=== PATIENT | male | born 1950 | race Caucasian/White ===

== ENCOUNTER 2016-12-28 09:06 | Day surgery (SDC) | payer BC ==
[2016-12-28] MEDS ORDERED: LR 1,000 ML IV ONE (09:52)
[2016-12-28] MEDS ORDERED: LIDOCAINE 1% 2 ML INJ ID PRN (09:52)
--- NOTE | 2016-12-28 11:12 | PDANEPAE ---
ANE Past Medical History - Cardiovascular History Hx Hypertension: Yes Hx Arrhythmias: Yes Hx Chest Pain: No Hx Coronary Artery / Peripheral Vascular Disease: Yes Hx CHF / Valvular Disease: No Hx Palpitations: No Cardiovascular History Comment: [place] 2007. STENTS X5 LAST 09/2015. ATRIAL ABLATION FOR A-FIB NO EPISODES SINCE 2009 - Pulmonary History Hx COPD: No Hx Asthma/Reactive Airway Disease: No Hx Recent Upper Respiratory Infection: No Hx Oxygen in Use at Home: No Hx Sleep Apnea: No Sleep Apnea Screening Result - Last Documented: Positive - Neurologic History Hx Cerebrovascular Accident: No Hx Seizures: No Hx Dementia: No - Endocrine History Hx Diabetes: No - Renal History Hx Renal Disorders: No - Liver History Hx Hepatic Disorders: No - Neurological & Psychiatric Hx Hx Neurological and Psychiatric Disorders: Yes Neurological / Psychiatric History Comment: DEPRESSION PRIOR RX - Cancer History Hx Cancer: No - Congenital Disorder History Hx Congenital Disorders: No - GI History Hx Gastrointestinal Disorders: Yes Gastrointestinal History Comment: REFLUX. RECENT EGD/COLONOSCOPY AT [facility] ([place], [place]) NOW FOR FURTHER FU - Other Health History Other Health History: INSOMNIA. RT SHLDR TORN LIGAMENTS. DENTAL IMPLANTS - Surgical History Prior Surgeries: 09/2015 STENTS X3. EGD/COLONOSCOPY ANE Review of Systems Review of Systems: - Exercise capacity METS (RN): 6 METS ANE Patient History - Allergies Allergies/Adverse Reactions: No Known Allergies Allergy (Unverified 12/24/16 15:29) - Home Medications Home Medications: ASPIRIN DAILY 12/24/16 [Last Taken 12/23/16] Avapro DAILY06 12/24/16 [Last Taken 12/27/16] Herbal Drugs DAILY 12/24/16 [Last Taken 12/23/16] Pantoprazole Sodium HS 12/24/16 [Last Taken 12/28/16] Plavix HS 12/24/16 [Last Taken 12/20/16] Potassium DAILY06 12/24/16 [Last Taken 12/27/16] Pravastatin Sodium HS 12/24/16 [Last Taken 12/27/16] - NPO status NPO Since - Liquids (Date): 12/27/16 NPO Since - Liquids (Time): 22:00 NPO Since - Solids (Date): 12/27/16 NPO Since - Solids (Time): 20:00 - Smoking Hx Smoking Status: Former smoker ANE Labs/Vital Signs - Vital Signs Blood Pressure: 117/87 Heart Rate: 61 Respiratory Rate: 16 O2 Sat (%): 95 Height: 175.26 cm Weight: 88.451 kg ANE Physical Exam - Airway Mallampati Score: Class 2 - ASA Status ASA Status: III ANE Anesthesia Plan Total IV Anesthesia: Yes
[2016-12-28] MEDS ORDERED: PROPOFOL/EMULSION 500 MG/50 ML BOTTLE IV ONE (11:16)
--- NOTE | 2016-12-28 11:17 | PDGENHP ---
History & Physical Chief Complaint: Submucosal gastric nodule Relevant Physical Exam: GEN: NAD. Cardiac: RRR. Lungs: CTA B. Abd: Soft, nt, nd
[2016-12-28] MEDS ORDERED: ONDANSETRON 4 MG/2 ML VIAL IVP PRN (11:45)
[2016-12-28] MEDS ORDERED: fentaNYL 100 MCG/2 ML INJ IVP PRN (11:45)
[2016-12-28] MEDS ORDERED: LR 500 ML IV PRN (11:45)
[2016-12-28] MEDS ORDERED: NALOXONE HCL 0.4 MG/ML INJ IVP PRN (11:45)
--- NOTE | 2016-12-28 11:46 | POSTANESTH ---
Post Anesthetic Evaluation Cardiovascular Status: Similar to Pre-Op Cond Respiratory Status: Normal, Stable Level of Consciousness/Mental Status: Can Participate in Eval Pain Control: Adequate, Prn Tx Ordered Nausea/Vomiting Control: Adequate, Prn Tx Ordered Complications Possibly Related to Anesthesia: None Noted
--- NOTE | 2016-12-28 12:26 | GIREPORT ---
[facility] Surgical Services - Endoscopy Department Patient Name: Mateus Bess Procedure Date: 12/28/2016 11:16 AM Patient Type: Outpatient Attending / ER Physician: Gopi Albert MD Procedure: Upper EUS Indications: Submucosal tumor versus extrinsic mass found on endoscopy Providers: Gopi Albert MD Medicines: Monitored Anesthesia Care Complications: No immediate complications. Description of Procedure: After obtaining informed consent, the endoscope was passed under direct vision. Throughout the procedure, the patient's blood pressure, pulse, and oxygen saturations were monitored continuously. The Endosonoscope was introduced through the mouth, and advanced to the second part of duoden um. The Endoscope was introduced through the mouth, and advanced to the sec ond part of duodenum. The upper EUS was accomplished without difficulty. Th e patient tolerated the procedure well. Findings: Endoscopic Finding : The Z-line was regular and was found 38 cm from the incisors. Multiple 4 to 5 mm sessile polyps with no bleeding and no stigmata of r ecent bleeding were found on the greater curvature of the stomach. A submucosal lesion is seen in the gastric antrum. The examined duodenum was normal. Endosonographic Finding : The esophagus, stomach and duodenum were visualized endosonographically . There was no sign of significant endosonographic abnormality in the pancreatic head, in the genu of the pancreas, in the pancreatic body, i n the pancreatic tail, in the uncinate process of the pancreas, in the peripancreatic region, in the pancreatic neck, in the main pancreatic d uct, in the accessory pancreatic duct and in the ampulla. The pancreas was w ell visualized, no pathologic lymphadenopathy, no masses, no cysts, no calcifications, the pancreatic duct was well visualized from ampulla to tail, the pancreatic duct was thin in caliber, the pancreatic duct was regular in contour. An oval intramural (subepithelial) lesion was found in the antrum of th e stomach. The lesion was hyperechoic. Sonographically, the lesion appear ed to originate from the submucosa (Layer 3). The lesion measured 5.1 mm (in maximum thickness). The lesion also measured 12.1 mm in diameter. The o uter endosonographic borders were well defined. Estimated Blood Loss: Estimated blood loss: none. Post Op Diagnosis: - Z-line regular, 38 cm from the incisors. - Multiple gastric polyps. - Nodular mucosa in the gastric antrum. - Normal examined duodenum. - There was no sign of significant pathology in the pancreatic head, in the genu of the pancreas, in the pancreatic body, in the pancreatic tail, i n the uncinate process of the pancreas, in the peripancreatic region, in the pancreatic neck, in the main pancreatic duct and in the accessory pancr eatic duct. - An intramural (subepithelial) lesion was found in the antrum of the stomach. The lesion appeared to originate from within the submucosa (La bruna 3). 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 - No specimens collected. Recommendation: - Discharge patient to home (with escort). - Resume previous diet. - Continue present medications. - Follow up in GI clinic as previously scheduled. - Thank you for allowing me to participate in the care of your patient. Attending Participation: I personally performed the entire procedure. Gopi Albert MD Gopi Albert MD 12/28/2016 12:25:53 PM This report has been signed electronicallyDanoemi Albert MD Number of Addenda: 0 Note Initiated On: 12/28/2016 11:16 AM [email or web address]
[2016-12-28 12:38] VITALS: BP 120/78
[2016-12-28 12:42] VITALS: PULSE 58; RESP 16; TEMP 97.9
[2016-12-28 13:16] VITALS: O2SAT 97
== END 2016-12-28 13:14 | disposition home or self-care (01) ==
LOC: FSGY 09:06
PROVIDERS: ATTEND Internal Medicine Gastroenterology
PROC: 0DJ08ZZ Inspection of Upper Intestinal Tract, Via Natural or Artificial Opening Endoscopic (ICD-10-PCS; principal; 2016-12-28 10:45)
DX: K31.89 Other diseases of stomach and duodenum (principal); K31.7 Polyp of stomach and duodenum; I25.10 Atherosclerotic heart disease of native coronary artery without angina pectoris; I10 Essential (primary) hypertension; I25.2 Old myocardial infarction; E78.5 Hyperlipidemia, unspecified; Z95.5 Presence of coronary angioplasty implant and graft; Z82.49 Family history of ischemic heart disease and other diseases of the circulatory system; Z87.891 Personal history of nicotine dependence
CPT/HCPCS: J2704

== ENCOUNTER 2017-05-18 14:40 | Emergency (ER) | payer BC ==
[2017-05-18 14:45] VITALS: RESP 16; O2SAT 94
[2017-05-18] MEDS ORDERED: ACETAMINOPHEN/CODEINE 300/30MG TAB PO ONE (14:51)
--- NOTE | 2017-05-18 14:54 | EDPHY ---
H & P Stated Complaint: Fell skiing; pain R upper leg (hit log); ambulatory Time Seen by Provider: 05/18/17 14:46 HPI/ROS: CHIEF COMPLAINT: Right thigh pain HISTORY OF PRESENT ILLNESS: Patient is a 66-year-old healthy man who was skiing and fell and slid into a log with his right thigh. He has a small abrasion in moderate-sized hematoma to his right thigh. He denies knee pain or hip pain. He denies other injuries. No head neck or back pain. He was able to ski down the hill and drive home before he noticed the swelling and came to the ER. He is ambulatory. REVIEW OF SYSTEMS: Constitutional: denies: chills, fever, recent illness, recent injury EENTM: denies: blurred vision, double vision, nose congestion Respiratory: denies: cough, shortness of breath Cardiac: denies: chest pain, irregular heart rate, lightheadedness, palpitations Gastrointestinal/Abdominal: denies: abdominal pain, diarrhea, nausea, vomiting, blood streaked stools Genitourinary: denies: dysuria, frequency, hematuria, pain Musculoskeletal: See HPI Skin: denies: lesions, rash, jaundice, bruising Neurological: denies: headache, numbness, paresthesia, tingling, dizziness, weakness Hematologic/Lymphatic: denies: blood clots, easy bleeding, easy bruising Immunologic/allergic: denies: HIV/AIDS, transplant EXAM: GENERAL: Well-appearing, well-nourished and in no acute distress. HEAD: Atraumatic, normocephalic. EYES: Pupils equal round and reactive to light, extraocular movements intact, sclera anicteric, conjunctiva are normal. ENT: TMs normal, nares patent, oropharynx clear without exudates. Moist mucous membranes. NECK: Normal range of motion, supple without lymphadenopathy or JVD. LUNGS: Breath sounds clear to auscultation bilaterally and equal. No wheezes rales or rhonchi. HEART: Regular rate and rhythm without murmurs, rubs or gallops. ABDOMEN: Soft, nontender, normoactive bowel sounds. No guarding, no rebound. No masses appreciated. BACK: No CVA tenderness, no spinal tenderness, step-offs or deformities EXTREMITIES: Abrasion and hematoma to right lateral thigh. No pain with range of motion or palpation of his hip or knee. NEUROLOGICAL: Cranial nerves II through XII grossly intact. Normal speech, normal gait. 5/5 strength, normal movement in all extremities, normal sensation PSYCH: Normal mood, normal affect. SKIN: Warm, dry, normal turgor, no visible rashes or lesions. Source: Patient Exam Limitations: No limitations - Personal History Current Tetanus Diphtheria and Acellular Pertussis (TDAP): Yes - Medical/Surgical History Hx Asthma: No Hx Chronic Respiratory Disease: No Hx Diabetes: No Hx Cardiac Disease: Yes Other PMH: [place] w/stents. HTN - Family History Significant Family History: No pertinent family hx - Social History Smoking Status: Former smoker Alcohol Use: Sober Drug Use: None Constitutional: Initial Vital Signs Heart Rate 92 05/18/17 14:41 Respiratory Rate 16 05/18/17 14:41 Blood Pressure 122/85 H 05/18/17 14:41 O2 Sat (%) 94 05/18/17 14:41 O2 Delivery Mode Room Air Allergies/Adverse Reactions: No Known Allergies Allergy (Verified 05/18/17 14:41) Home Medications: Medication Instructions Recorded ASPIRIN DAILY 12/24/16 Pantoprazole Sodium HS 12/24/16 Plavix HS 12/24/16 Pravastatin Sodium HS 12/24/16 Acetaminophen/Codeine 300/30Mg 1 - 2 each PO Q6 PRN #14 tab 05/18/17 [Tylenol #3 (RX)] Irbesartan [Avapro 150 mg (*)] 150 mg PO DAILY 05/18/17 Medical Decision Making - Diagnostics Imaging Results: Imaging Impressions Femur X-Ray 05/18/17 14:51 Impression: Normal femur. Hand X-Ray 05/18/17 15:44 Impression: There is a nondisplaced obliquely oriented fracture involving the middle phalanx of the ring finger. Imaging: I viewed and interpreted images myself (No femur fracture, right 4th finger middle phalanx fracture) Procedures: Procedure: Splint placement. A the finger mental splint was applied. After application of the splint I returned and re-examined the patient. The splint was adequately immobilizing the joint and distal to the splint the patient's circulation and sensation was intact. ED Course/Re-evaluation: On re-evaluation patient is also having some pain and swelling to his right 4th finger. We will x-ray this well. We discussed and reviewed the images together. He was placed in a splint and moses-taped. He tolerated this well. I will have her follow up with Hand surgery. I discussed ice and elevation. Differential Diagnosis: Partial list of the Differential diagnosis considered include but were not limited to; thigh contusion, finger fracture, and although unlikely based on the history and physical exam, I also considered head injury, neck injury. I discussed these differential diagnoses and the plan with the patient as well as the usual and expected course. The patient understands that the diagnosis is provisional and that in medicine we are not always correct and that further workup is often warranted. Usual and customary warnings were given. All of the patient's questions were answered. The patient was instructed to return to the emergency department should the symptoms at all worsen or return, otherwise to followup with the physician as we discussed. - Data Points Medications Given: Discontinued Medications Acetaminophen/Codeine Phosphate (Tylenol #3) 2 tab PO EDNOW ONE Stop: 05/18/17 14:52 Last Admin: 05/18/17 15:08 Dose: 2 tab Departure - Departure Disposition: Home, Routine, Self-Care Clinical Impression: Finger fracture, right Qualifiers: Encounter type: initial encounter Finger: ring finger Fracture type: closed Phalanx: middle Fracture alignment: nondisplaced Qualified Code(s): S62.654A - Nondisplaced fracture of medial phalanx of right ring finger, initial encounter for closed fracture Traumatic hematoma of right thigh Qualifiers: Encounter type: initial encounter Qualified Code(s): S70.11XA - Contusion of right thigh, initial encounter Condition: Fair Instructions: Finger Fracture (ED), Hematoma (ED) Referrals: Patient,NotPresent [Primary Care Provider] - As per Instructions Sunday Simons MD [Medical Doctor] - 5-7 days, call for appt. Prescriptions: Acetaminophen/Codeine 300/30Mg [Tylenol #3 (RX)] 1 - 2 each PO Q6 PRN #14 tab PRN Reason: *Cough
[2017-05-18 16:26] VITALS: BP 138/90; PULSE 84
== END 2017-05-18 16:33 | disposition home or self-care (01) ==
DX: S62.654A Nondisplaced fracture of middle phalanx of right ring finger, initial encounter for closed fracture (principal); S70.11XA Contusion of right thigh, initial encounter; I10 Essential (primary) hypertension; I25.2 Old myocardial infarction; Z95.5 Presence of coronary angioplasty implant and graft; Z87.891 Personal history of nicotine dependence; Z79.82 Long term (current) use of aspirin; V00.321A Fall from snow-skis, initial encounter; Y99.8 Other external cause status; Y93.23 Activity, snow (alpine) (downhill) skiing, snowboarding, sledding, tobogganing and snow tubing
CPT/HCPCS: L3925

== ENCOUNTER → 2017-11-21 | Outpatient (CLI) | payer OTHER | LOC: FIMAGING 18:53 | PROVIDERS: ATTEND Family Medicine | DX: S86.812A Strain of other muscle(s) and tendon(s) at lower leg level, left leg, initial encounter (principal); M22.42 Chondromalacia patellae, left knee ==

== ENCOUNTER 2017-11-29 18:05 | Emergency (ER) | payer OTHER ==
--- NOTE | 2017-11-29 18:17 | EDPHY ---
H & P Stated Complaint: pt concerned for elevated BP at home and h/a Time Seen by Provider: 11/29/17 18:16 HPI/ROS: CHIEF COMPLAINT: Difficult control blood pressure HISTORY OF PRESENT ILLNESS: The patient presents the ED with elevated blood pressures for the past several days. He reports systolic blood pressure in the 170-150 range. He is currently taking Avapro. Several days ago he doubled the dose of this medication at the recommendation of his primary care provider. He is still continued to have ongoing high blood pressure. The patient complains only of a mild frontal headache. He denies any chest pain or shortness of breath. The patient does have a history of myocardial infarction with stent placement. The patient denies any focal numbness or weakness. He denies additional acute complaints. REVIEW OF SYSTEMS: A comprehensive 10 point review of systems is otherwise negative aside from elements mentioned in the history of present illness. Source: Patient Exam Limitations: No limitations - Medical/Surgical History Hx Asthma: No Hx Chronic Respiratory Disease: No Hx Diabetes: No Hx Cardiac Disease: Yes Hx Renal Disease: No Hx Cirrhosis: No Hx Alcoholism: No Hx HIV/AIDS: No Hx Splenectomy or Spleen Trauma: No Other PMH: [place] w/stents 2007. HTN, a-fb w/ablation - Social History Smoking Status: Former smoker - Physical Exam Exam: General Appearance: Alert, no distress Eyes: Pupils equal and round no pallor or injection ENT, Mouth: Mucous membranes moist Respiratory: There are no retractions, lungs are clear to auscultation Cardiovascular: Regular rate and rhythm Gastrointestinal: Abdomen is soft and nontender, no masses, bowel sounds normal Neurological: A&O, normal motor function, normal sensory exam, normal cranial nerves Skin: Warm and dry, no rashes Musculoskeletal: Neck is supple nontender Extremities: symmetrical, full range of motion Constitutional: Initial Vital Signs Temperature (C) 36.8 C 11/29/17 18:08 Heart Rate 88 11/29/17 18:08 Respiratory Rate 16 11/29/17 18:08 Blood Pressure 150/100 H 11/29/17 18:08 O2 Sat (%) 96 11/29/17 18:08 O2 Delivery Mode Room Air Allergies/Adverse Reactions: No Known Allergies Allergy (Verified 05/18/17 14:41) Home Medications: Medication Instructions Recorded ASPIRIN DAILY 12/24/16 Pantoprazole Sodium HS 12/24/16 Plavix HS 12/24/16 Pravastatin Sodium HS 12/24/16 Acetaminophen/Codeine 300/30Mg 1 - 2 each PO Q6 PRN #14 tab 05/18/17 [Tylenol #3 (RX)] Irbesartan [Avapro 150 mg (*)] 150 mg PO DAILY 05/18/17 Medical Decision Making ED Course/Re-evaluation: The patient presents to the ED with complaints of elevated blood pressure. The patient was placed on a blood pressure monitor. His blood pressure has been in the 140-150 over 90-100 range. The patient has no evidence of renal failure. He has no complaints of chest pain or shortness of breath. The patient is neurologically intact. He has no complaints of a acute severe thunderclap type headache. I did feliberto Cota from Cardiology who recommends starting 5 mg of Norvasc. The patient was given his 1st dose in the emergency department. He will be instructed to take Norvasc in the morning. He will contact Cardiology to schedule a follow-up visit next week. Differential Diagnosis: Differential diagnosis considered includes hypertensive emergency, hypertensive urgency, renal failure - Data Points Laboratory Results: 11/29/17 18:38 POC Hgb 15.0 gm/dL gm/dL (13.7-17.5) POC Hct 44 % % (40-51) POC Sodium 143 mEq/L mEq/L (135-145) POC Potassium 4.0 mEq/L mEq/L (3.3-5.0) POC Chloride 108 mEq/L mEq/L (97-110) POC BUN 18 mg/dL mg/dL (7-23) POC Creatinine 1.2 mg/dL mg/dL (0.7-1.3) POC Glucose 96 mg/dL mg/dL (70-100) Point of Care Test Results: Chemistry 11/29/17 18:38 POC Sodium 143 mEq/L mEq/L (135-145) POC Potassium 4.0 mEq/L mEq/L (3.3-5.0) POC Chloride 108 mEq/L mEq/L (97-110) POC BUN 18 mg/dL mg/dL (7-23) POC Creatinine 1.2 mg/dL mg/dL (0.7-1.3) POC Glucose 96 mg/dL mg/dL (70-100) ISTAT H&H 11/29/17 18:38 POC Hgb 15.0 gm/dL gm/dL (13.7-17.5) POC Hct 44 % % (40-51) Departure - Departure Disposition: Home, Routine, Self-Care Clinical Impression: Hypertension Condition: Good Instructions: Chronic Hypertension (ED) Additional Instructions: 1. Please begin Norvasc 5 mg once a day as prescribed. Take this medication in the morning. 2. Check your blood pressure twice a day and keep a log. 3. Please schedule a follow-up appointment with Dr. Don for a blood pressure recheck next week. Referrals: Corona Don MD [Medical Doctor] - As per Instructions
[2017-11-29] MEDS ORDERED: amLODIPine BESYLATE 5 MG TAB PO ONE (19:24)
[2017-11-29 19:42] VITALS: BP 154/100
== END 2017-11-29 19:43 | disposition home or self-care (01) ==
DX: R03.0 Elevated blood-pressure reading, without diagnosis of hypertension (principal); I10 Essential (primary) hypertension; I48.91 Unspecified atrial fibrillation; Z95.5 Presence of coronary angioplasty implant and graft; Z79.899 Other long term (current) drug therapy
CPT/HCPCS: 82435-PO; 82565-PO; 82947-PO; 84132-PO; 84295-PO; 84520-PO; 85014-PO

== ENCOUNTER → 2018-07-27 | Day surgery (SDC) | payer OTHER ==
[~2018-07-27] MED LIST: ALPRAZolam 0.5 MG TAB PO PRN; ASPIRIN EC 325 MG TAB PO ONE; ASPIRIN EC 81 MG TAB PO SCH; ATROPINE SULFATE 1 MG/10 ML SYR IVP PRN; CLOPIDOGREL BISULFATE 75 MG TAB PO SCH; DIAZEPAM 5 MG TAB PO ONE; DILTIAZEM CD 120 MG CAP PO SCH; FAMOTIDINE 20 MG TAB PO ONE; HEPARIN 10,000 UNIT/10 ML MDV (1,000 UNIT/ML) ONE; HYDROCODONE/APAP 5/325 TAB PO PRN; IOPAMIDOL (ISOVUE 370) 100 ML BTL IV ONE; IRBESARTAN 150 MG TAB PO SCH; LIDOCAINE 1% 5 ML SDV ONE; MIDAZOLAM 2 MG/2 ML VIAL ONE; NITROGLYCERIN 0.4 MG BTL SL PRN; NS 1,000 ML IV ONE; ONDANSETRON 4 MG/2 ML VIAL IVP PRN; OXYCODONE/APAP 5/325 TAB PO PRN; PANTOPRAZOLE SODIUM 40 MG TAB PO SCH; PRAVASTATIN SODIUM 40 MG TAB PO SCH; VERAPAMIL 5 MG/2 ML VIAL ONE; ZOLPIDEM TARTRATE 5 MG TAB PO PRN; diphenhydrAMINE 25 MG CAP PO ONE; fentaNYL 100 MCG/2 ML INJ ONE
[2018-07-27 09:42] LABS: PLATELET COUNT 206 10^3/uL (150-400)
[2018-07-27 09:50] LABS: INR 0.96 (0.83-1.16); PROTIME(PATIENT) 12.4 SEC (12.0-15.0)
--- NOTE | 2018-07-27 09:56 | PDHPUP ---
History & Physical Update H&P update statement: This history and physical update is based on an assessment of the patient which was completed after admission or registration (within 24 hours), but prior to the surgery/procedure. H&P update: H&P reviewed & patient examined, no change in patient's condition since H&P completed
--- NOTE | 2018-07-27 09:57 | PDPROPOC ---
Sedation Plan of Care Sedation Plan of Care: vital signs stable, mental status noted, patient educated of risks, benefits, alternatives, patient can tolerate sedation ASA Classification: ASA 3 Planned drugs: fentanyl, midazolam Mallampati Score: Class 3 Mallampati Reference Image: Patient passed 3-3-2 rule?: Yes
--- NOTE | 2018-07-27 10:44 | PDDXCAT ---
Diagnostic Cath Note - . Date: 07/27/18 Director Statistical Programming: [place] Indication: Class I/II angina, intolerance to med therapy or failure to respond - Procedure Procedure: left heart catheterization, coronary angiography, left ventriculogram - Materials Left Heart Cath size: 5F Left Heart Cath materials: JL3.5, JR4.0, pigtail - Findings-Left Heart Catheterization LM: The left main is 5mm in size and bifurcates into a LAD and Circumflex system. There is no evidence of flow-limiting disease. There is LAURIE III flow. LAD: The left anterior descending artery is 2.5mm in size and was previously stented and widely patent without instent restenosis. The vessel gives rise to two diagonal branches. There is a 50% stenosis in the ostium of the first diagonal. The second diagonal is a small vessel with a 50% stenosis. There is LAURIE III flow. LCX: The left circumflex is 3mm in size and gives rise to three obtuse marginal branches. The third obtuse marginal was previously stented and widely patent without instent restonsis. There is no evidence of flow-limiting obstruction. There is LAURIE III flow. RCA: The right coronary artery is 3.5mm in size and dominant. The vessel gives rise to a PDA branch. There is a 40% stenosis near the acute marginal branch. There is LAURIE III flow. EDP: 14mmHg LVEF: 65% Wall motion: On the LV gram there is normal LV systolic function. The EF is 65% . There are no resting segmental wall motion abnormalities. The visualized portion of the thoracic aortic valve reveals three sinuses of valsalva most consistent with a trileaflet valve. There is no gradient on pullback across the aortic valve. There is no evidence of vilma dissection or aneurysm formation of the thoracic aorta. - Findings-Right Heart Catheterization AO: 116/55/72 Complications: NONE Estimated blood loss: <50ml Assessment: The patient has non flow-limiting disease. The LAD and third obtuse marginal branch have been previously stented and are widely patent without instent restenosis. There is a lesion in the RCA near the acute mariginal branch of 40%. There is a post stenotic dilation of the RCA. The patient should be medically managed to reduce the progression of plaque formation. Plan: The patient has non-flow limiting coronary disease that should be treated medically to achieve a non-HDL Cholesterol of less than 100 mg/dL , LDL less than 70mg/dL and anti platelet therapy with ASA is also recommended specifically a dose of 162 mg per day. Intervention: NONE
--- NOTE | 2018-07-28 14:38 | CPEKG ---
Test Reason : OPEN Blood Pressure : / mmHG Vent. Rate : 069 BPM Atrial Rate : 068 BPM P-R Int : 219 ms QRS Dur : 103 ms QT Int : 418 ms P-R-T Axes : -14 -09 -27 degrees QTc Int : 448 ms Sinus rhythm Borderline prolonged WI interval Inferior infarct, age indeterminate Confirmed by Milton Rodas ([id number]) on 07/28/2018 2:38:34 PM Referred By: Contreras Barahona Confirmed By:Milton Rodas
== END | disposition home or self-care (01) ==
LOC: FCATH 09:02
PROVIDERS: ATTEND Internal Medicine Cardiovascular Disease
PROC: B2111ZZ Fluoroscopy of Multiple Coronary Arteries using Low Osmolar Contrast (ICD-10-PCS; principal; 2018-07-27)
PROC: B2151ZZ Fluoroscopy of Left Heart using Low Osmolar Contrast (ICD-10-PCS; principal; 2018-07-27)
PROC: 4A023N7 Measurement of Cardiac Sampling and Pressure, Left Heart, Percutaneous Approach (ICD-10-PCS; principal; 2018-07-27)
DX: I25.119 Atherosclerotic heart disease of native coronary artery with unspecified angina pectoris (principal); I25.2 Old myocardial infarction; Z95.5 Presence of coronary angioplasty implant and graft; I49.3 Ventricular premature depolarization; I10 Essential (primary) hypertension; E78.5 Hyperlipidemia, unspecified; Z87.891 Personal history of nicotine dependence
CPT/HCPCS: 93005; 93458; C1769; J1644; J2250; J3010; Q9967